=== PATIENT | female | born 1980 | race Caucasian/White ===

== ENCOUNTER → 2017-01-16 | Outpatient (CLI) | payer OTHER ==
[~2017-01-16] MED LIST: ADVAIR 250-501 EACH INH; ADVIL200 MG PO; CIPRO500 MG PO; CLARITIN10 MG PO; LISINOPRIL-HCT1 EACH PO; PRILOSEC20 MG PO; PROAIR HFA8.5 GM INH; TYLENOL EXTRA500 MG PO
== END | disposition disaster alternative care site (69) ==
LOC: GRAD 10:07
DX: Z03.89 Encounter for observation for other suspected diseases and conditions ruled out (principal); N13.30 Unspecified hydronephrosis; N13.4 Hydroureter

== ENCOUNTER → 2017-01-17 | Outpatient (CLI) | payer OTHER | END | disposition disaster alternative care site (69) | LOC: GRAD 10:53 | PROC: BT0BYZZ Plain Radiography of Bladder and Urethra using Other Contrast (ICD-10-PCS; principal; 2017-01-17) | DX: R93.421 Abnormal radiologic findings on diagnostic imaging of right kidney (principal) ==

== ENCOUNTER → 2017-01-22 | Day surgery (SDC) | payer OTHER ==
[~2017-01-22] VITALS: Ht 165.1 cm; Wt 122.4 kg
--- NOTE | ~2017-01-22 | OR ---
PATIENT'S NAME: HENRIQUE CHAUDHARI [facility] AGE: 36 Y [address] ROOM: [place] [id number] LOCATION: [facility] [place] DATE: 01/22/2017 OR/Procedure Report DISCHARGE DATE: FAMILY PHYSICIAN: Diya Serrano APRN ATTENDING PHYSICIAN: Pelon Owen SURGEON: Pelon Owen MD [employer] FACE AND FILL: DATE OF PROCEDURE: 01/22/2017 PREOPERATIVE DIAGNOSES: Ureterocele right with hydroureteronephrosis. POSTOPERATIVE DIAGNOSES: Ureterocele right with hydroureteronephrosis. PROCEDURE PERFORMED: 1. Cystoscopy, retrograde. 2. Cystoscopy, resection of ureterocele. DESCRIPTION OF PROCEDURE: After adequate anesthesia, a cystoscope was inserted. The bladder was examined. She had a large ureterocele, pushing the ureters to a side. I could see the orifice to the lower pole collecting system. She had a pinpoint opening. The resectoscope was inserted and with a knife blade, the ureterocele was opened. It was amazing that how thickened it was. The cavity though appeared normal. An open-ended catheter was passed, contrast media was injected, and the ureter was dilated. The upper collecting system was dilated consistent with her CT findings. There was some redundant ureterocele tissue and this was then resected, leaving her an adequate opening for good drainage of her upper pole. She was then accompanied to recovery area. PELON OWEN MD EKL/modl /[id number] d: 01/22/17 1020 t: 01/24/17 0432, OPERATIVE SUMMARY
--- NOTE | ~2017-01-22 | HP ---
PATIENT'S NAME: HENRIQUE CHAUDHARI [facility] AGE: 36 Y [address] ROOM: [place] [address] LOCATION: [facility] ADMIT DATE: 01/22/2017 History & Physical DISCHARGE DATE: FAMILY PHYSICIAN: Diya Serrano APRN ATTENDING PHYSICIAN: Cornelio Owen DATE OF SERVICE: HISTORY: A 36-year-old female, who was well until about 3 weeks ago when she began having recurrent bouts of right flank colicky-type pain. She also had some dysuria, burning, and urgency. Her urinalysis showed pyuria and her urine culture revealed Gram-positive colonies over 100,000. She was treated with Cipro 500 mg b.i.d. for 7 days with good results. Then, on January 15, 2017, she again had the same symptoms with right renal colicky pain. She again was treated with Rocephin and Cipro. 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 She had a history of a kidney stone at age 21, which she passed spontaneously while she was living in the [facility]. She has had no other history of nephrolithiasis. No other history of urinary tract disease or infections. She was born in [place]. 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 She is a 0, para 0. No problems with her menses. CT scan was done and this showed complete duplication of the right kidney with dilatation of the right upper pole collecting system and a filling defect in the bladder consistent with a ureterocele. PHYSICAL EXAMINATION: GENERAL: A well-developed and well-nourished female. VITAL SIGNS: 268 pounds. CHEST: Clear. HEART: Normal sinus rhythm. ABDOMEN: Soft with no palpable masses. PELVIC AND RECTAL: Deferred. IMPRESSION: 1. 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 PATIENT'S NAME: HENRIQUE CHAUDHARI [facility] AGE: 36 Y [address] ROOM: [place] [address] LOCATION: [facility] ADMIT DATE: 01/22/2017 History & Physical DISCHARGE DATE: FAMILY PHYSICIAN: Diya Serrano APRN ATTENDING PHYSICIAN: Cornelio Owen 2. Recurrent right renal colicky pain. PLAN: Cystoscopy and excision of ureterocele. MD DONAVAN FRENCH/patrickl /[id number] D: [id number] T: [id number] HISTORY & PHYSICAL
== END | disposition disaster alternative care site (69) ==
LOC: GPOC 01-20 10:00 → GSDC 06:50 → GPOC 10:00
PROC: BT1DZZZ Fluoroscopy of Right Kidney, Ureter and Bladder (ICD-10-PCS; principal; 2017-01-22)
PROC: 0T568ZZ Destruction of Right Ureter, Via Natural or Artificial Opening Endoscopic (ICD-10-PCS; 2017-01-22)
DX: N28.89 Other specified disorders of kidney and ureter (principal); N13.30 Unspecified hydronephrosis; K21.9 Gastro-esophageal reflux disease without esophagitis; I10 Essential (primary) hypertension; J45.909 Unspecified asthma, uncomplicated; Z79.899 Other long term (current) drug therapy; Z88.5 Allergy status to narcotic agent
CPT/HCPCS: J0713; J2001; J7030; J7040